=== PATIENT | female | born 1970 | race Caucasian/White ===

== ENCOUNTER 2022-02-26 09:49 | Outpatient (CLI) | payer OTHER, SELFPAY ==
[2022-02-26 15:40] LABS: SARS PCR* Negative SARS-CoV-2 (Negative)
== END 2022-02-26 09:50 | disposition home or self-care (01) ==
LOC: FBOREF 09:50
PROVIDERS: Visit Provider Family Medicine
DX: Z20.822 Contact with and (suspected) exposure to COVID-19 (principal)
CPT/HCPCS: 87635

== ENCOUNTER 2022-02-28 06:03 | Outpatient (CLI) | payer OTHER, SELFPAY | END 2022-02-28 06:04 | disposition home or self-care (01) | LOC: OP CLINIC 06:05 | PROVIDERS: PCP Family Medicine; Visit Provider Internal Medicine | DX: Z12.11 Encounter for screening for malignant neoplasm of colon (principal) | CPT/HCPCS: 45378; J2250; J3010 ==

== ENCOUNTER 2022-11-07 08:50 | Outpatient (CLI) | payer OTHER, SELFPAY | END 2022-11-07 08:51 | disposition home or self-care (01) | PROVIDERS: PCP Family Medicine; Referring Provider Family Medicine; Visit Provider Physician Assistant | DX: Z01.419 Encounter for gynecological examination (general) (routine) without abnormal findings (principal); R23.2 Flushing; R03.0 Elevated blood-pressure reading, without diagnosis of hypertension | CPT/HCPCS: 80048; 83001; 84443 ==

== ENCOUNTER 2022-11-21 13:19 | Outpatient (CLI) | payer OTHER, SELFPAY ==
--- NOTE | 2022-11-21 13:40 | CRLHL7_ITS ---
For Patients: As a result of the Cures Act, medical imaging exams and procedure reports are released immediately into your electronic medical record. You may view this report before your referring provider. If you have questions, please contact your health care provider. BILATERAL SCREENING MAMMOGRAM WITH COMPUTER-AIDED DETECTION AND TOMOSYNTHESIS TECHNIQUE: CC, MLO and Implant displaced views were obtained. These mammographic images have been obtained using full-field digital technique. These mammographic images were interpreted with the benefit of computer-aided detection. Breast Tomosynthesis was used in this interpretation. COMPARISON FILM: 09/20/21, 08/17/20, 12/28/18. FINDINGS: There are scattered areas of fibroglandular density IMPRESSION: There is no radiographic evidence for malignancy. ASSESSMENT: BI-RADS Category 2: Benign RECOMMENDATION: Routine screening mammogram in 1 year. A lay language report of this examination will be provided to the patient. Lety Viera M.D. Diagnostic/Breast Radiologist [email or web address] SHEY/vita Transcribed: 2:15 p.[email or web address] gorman/Dictated by: Lety Viera MD @ 11/24/2022 8:29:00 AM (Electronically Signed)
== END 2022-11-21 13:20 | disposition home or self-care (01) ==
LOC: MAMMO 13:20
PROVIDERS: PCP Family Medicine; Visit Provider Family Medicine
DX: Z12.31 Encounter for screening mammogram for malignant neoplasm of breast (principal)
CPT/HCPCS: 77063; 77067

== ENCOUNTER 2023-06-15 09:24 | Outpatient (CLI) | payer OTHER, SELFPAY | END 2023-06-15 09:25 | disposition home or self-care (01) | PROVIDERS: PCP Family Medicine; Visit Provider Family Medicine | DX: I10 Essential (primary) hypertension (principal) | CPT/HCPCS: 80048; 80061 ==

== ENCOUNTER 2023-12-04 12:46 | Outpatient (CLI) | payer OTHER, SELFPAY ==
--- NOTE | 2023-12-04 13:00 | MM_ITS ---
Patient: RENEE LAKE Facility:?[facility] Patient ID:?[id number] Site Patient ID:?[id number]. Site :?[id number] Study:?XRay-Breast Bilateral 3D W/CAD-12/04/2023 1:14:49 PM Ordering Physician:Justyna Final Report: BILATERAL SCREENING MAMMOGRAM WITH COMPUTER-AIDED DETECTION AND TOMOSYNTHESIS TECHNIQUE: CC and MLO views were obtained. These mammographic images have been obtained using full-field digital technique. These mammographic images were interpreted with the benefit of computer-aided detection. Breast Tomosynthesis was used in this interpretation. COMPARISON FILM: 11/21/22, 09/20/21, 08/20/20. FINDINGS: There are scattered areas of fibroglandular density. IMPRESSION: There is no radiographic evidence for malignancy. ASSESSMENT: BI-RADS Category 2: Benign RECOMMENDATION: Routine screening mammogram in 1 year. A lay language report of this examination will be provided to the patient. Sergio Gabriel M.D. Diagnostic Radiologist [email or web address] DSM/sp R& Transcribed: 8:05 p.m. SP/Dictated by: Sergio Gabriel MD @ 12/10/2023 9:54:00 AM Signed by:?Sergio Gabriel MD @12/10/2023 8:30:38 PM (Electronic Signature)
== END 2023-12-04 12:47 | disposition home or self-care (01) ==
LOC: MAMMO 12:47
PROVIDERS: PCP Family Medicine; Visit Provider Family Medicine
DX: Z12.31 Encounter for screening mammogram for malignant neoplasm of breast (principal)
CPT/HCPCS: 77063; 77067

== ENCOUNTER 2024-12-16 08:20 | Outpatient (CLI) | payer OTHER, SELFPAY | END 2024-12-16 08:21 | disposition home or self-care (01) | PROVIDERS: PCP Family Medicine; Visit Provider Family Medicine | DX: Z00.00 Encounter for general adult medical examination without abnormal findings (principal); I10 Essential (primary) hypertension; K92.1 Melena | CPT/HCPCS: 80048; 80061; 85025 ==

== ENCOUNTER 2025-02-21 16:03 | Outpatient (CLI) | payer OTHER, SELFPAY ==
--- NOTE | 2025-02-21 16:20 | CRLHL7_ITS ---
For Patients: As a result of the Century Cures Act, medical imaging exams and procedure reports are released immediately into your electronic medical record. You may view this report before your referring provider. If you have questions, please contact your health care provider. INDICATION: BILATERAL SCREENING MAMMOGRAM, ASYMPTOMATIC 54 Y/O FEMALE COMPARISON: 12/04/2023, 11/21/2022, 09/20/2021 TECHNIQUE: Digital mammogram in CC and MLO projections including computer-aided detection (CAD) and tomosynthesis. BREAST COMPOSITION: There are scattered areas of fibroglandular density. FINDINGS: No suspicious findings. ASSESSMENT: BI-RADS 1 Negative RECOMMENDATION: Annual screening mammogram. A lay language report of this examination will be provided to the patient. Dictated by: Emy Titus MD @ 02/23/2025 11:28:45 (Electronically Signed)
== END 2025-02-21 16:04 | disposition home or self-care (01) ==
LOC: MAMMO 16:04
PROVIDERS: PCP Family Medicine; Visit Provider Family Medicine
DX: Z12.31 Encounter for screening mammogram for malignant neoplasm of breast (principal)
CPT/HCPCS: 77063; 77067